=== PATIENT | male | born 1935 | race Caucasian/White ===

== ENCOUNTER 2021-08-25 14:35 | Inpatient (IN) | payer MEDICARE, OTHER ==
[~2021-08-25] VITALS: Ht 182.9 cm; Wt 64.4 kg
[2021-08-25 15:08] LABS: HEMATOCRIT 41.5 % (36.7-47.1); MEAN CORPUSCULAR HEMOGLOBIN 31.9 uug (23.8-33.4); MEAN CORPUSCULAR VOLUME 94.9 fL (73.0-96.2); PLATELET COUNT (AUTO) 199 K/uL (152-348)
[2021-08-25 15:21] LABS: CARBON DIOXIDE 29 mmol/L (21-32); CHLORIDE 106 mmol/L (98-107); CREATININE 1.2 mg/dL (0.6-1.3); GLUCOSE 133 mg/dL (74-106); UREA NITROGEN, BLOOD 24 mg/dL (7-18)
[2021-08-25 15:24] LABS: ETHANOL < 3 MG/DL (0-0)
[2021-08-25 15:31] LABS: THYROID STIMULATING HORMONE 0.874 mIU/mL (0.358-3.740)
[2021-08-25 15:33] LABS: ALANINE AMINOTRANSFERASE 30 U/L (16-63); ALKALINE PHOSPHATASE 64 U/L (50-136); ASPARTATE AMINOTRANSFERASE 18 U/L (15-37); BILIRUBIN,DIRECT 0.1 mg/dL (0.0-0.2); BILIRUBIN,TOTAL 0.3 mg/dL (0.2-1.0); TOTAL PROTEIN, SERUM 6.4 g/dL (6.4-8.2)
[2021-08-25 15:34] LABS: ACETAMINOPHEN < 2.0 ug/mL (10-30)
[2021-08-25 15:49] LABS: *BILIRUBIN,URIN NEGATIVE (NEGATIVE); *BLOOD, URINE NEGATIVE (NEGATIVE); *CLARITY,URINE CLEAR (CLEAR); *COLOR,URINE YELLOW (YELLOW); *KETONES,URINE NEGATIVE (NEGATIVE); LEUKOCYTE ESTERASE ,URINE NEGATIVE (NEGATIVE); NITRITE, URINE NEGATIVE (NEGATIVE); PH,URINE 6.5 (5.0-8.0); UGLUCOSE NEGATIVE (NEGATIVE)
[2021-08-25 15:59] LABS: *AMPHETAMINE, URINE NEGATIVE (NEGATIVE); *CANNABINOID, URINE NEGATIVE (NEGATIVE); *COCCAINE, URINE NEGATIVE (NEGATIVE); *OPIATE, URINE NEGATIVE (NEGATIVE); *PHENCYCLIDINE SCREEN,URINE NEGATIVE (NEGATIVE)
--- NOTE | 2021-08-25 16:50 | NUR ---
Pt placed on 5150 (GD) hold by Art.
--- NOTE | 2021-08-25 17:10 | NUR ---
AT BEDSIDE, PT RESTLESS, GETTING WORSE, TRIES TO COME OUT OF BED, MD NOTIFIED.
[2021-08-25] MEDS ORDERED: ZIPRASIDONE MESYLATE 20 MG VIAL IM ONE ×2 (17:15→17:20)
[2021-08-25] MEDS ORDERED: LORAZEPAM 2 MG/1 ML VIAL IM ONE (17:15)
[2021-08-25] MEDS ORDERED: diphenhydrAMINE 50 MG/1 ML VIAL IM ONE (17:15)
[2021-08-25] MEDS ORDERED: diphenhydrAMINE 50 MG/1 ML VIAL ONE (17:19)
[2021-08-25] MEDS ORDERED: LORAZEPAM 2 MG/1 ML VIAL ONE (17:20)
--- NOTE | 2021-08-25 17:30 | NUR ---
Per pt is medically clear and may be admitted to MHU. SBAR report given to HENRIQUE Wade via telephone.
[2021-08-25] MEDS ORDERED: HALO5TAB PO (17:44)
[2021-08-25] MEDS ORDERED: LORA-259 PO (17:44)
[2021-08-25] MEDS ORDERED: OLAN5TAB3 PO (17:44)
[2021-08-25] MEDS ORDERED: POLY17PO4 PO (17:44)
[2021-08-25] MEDS ORDERED: LORA-258 PO (17:44)
[2021-08-25] MEDS ORDERED: MAGN400O6 PO (17:44)
[2021-08-25] MEDS ORDERED: MIRT-93 PO (17:44)
--- NOTE | 2021-08-25 17:52 | NUR ---
Pt trans to MHU, NAD noted.
[2021-08-25] MEDS ORDERED: ACETAMINOPHEN 325 MG TABLET PO PRN (18:00)
[2021-08-25] MEDS ORDERED: MAGNESIUM HYDROXIDE 30 ML LIQUID UDC PO PRN (18:00)
[2021-08-25] MEDS ORDERED: MAG HYDROX/AL HYDROX/SIMETH 30 ML LIQUID UDC PO PRN (18:00)
[2021-08-25] MEDS ORDERED: LORAZEPAM 1 MG TABLET PO PRN (18:00)
[2021-08-25] MEDS ORDERED: TEMAZEPAM 7.5 MG CAPSULE PO PRN (18:00)
[2021-08-25 18:21] VITALS: BP 143/85
--- NOTE | 2021-08-25 18:39 | NUR ---
ADMITTED A 86 YRS OLD PATIENT FROM ER, PATIENT IS AAO X1 UNABLE TO ANSWER ANY QUESTION DUE TO MENTAL STATUS. 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 STATES 3 WEEKS AGO PT BECOME ACUTELY PSYCHOTIC ANY [facility] WAS UNABLE TO CARE OF HIM. PATIENT NOTED BOTH KNEE WITH SCAB PICTURE TAKEN . DR. FLORES NOTIFIED ADMISSION
[2021-08-25 21:00] VITALS: BP 127/78
[2021-08-25 21:02] VITALS: BP 130/87
--- NOTE | 2021-08-25 22:14 | NUR ---
RECEIVED PATIENT IN THE HALLWAY SITTING IN A ADELAIDA CHAIR. HE IS NOTED SLEEPING BUT EASILY AROUSABLE. PATIENT NOTED CONFUSED WITH DISORGANIZED SPEECH. PATIENT IS A POOR HISTORIAN AND IS UNABLE TO HAVE A MEANINGFUL CONVERSATION WITH THIS LINKING MACHINE OPERATOR. V/S STABLE AT THIS TIME. SHE WAS GIVEN PO FLUIDS AND SNACKS. SAFETY AND FALL PRECAUTIONS ARE IN PLACE. WILL CONTINUE TO MONITOR.
[2021-08-26 08:08] LABS: ALANINE AMINOTRANSFERASE 23 U/L (16-63); ALKALINE PHOSPHATASE 69 U/L (50-136); ASPARTATE AMINOTRANSFERASE 24 U/L (15-37); BILIRUBIN,TOTAL 1.3 mg/dL (0.2-1.0); CARBON DIOXIDE 28 mmol/L (21-32); CHLORIDE 108 mmol/L (98-107); CREATININE 1.8 mg/dL (0.6-1.3); GLUCOSE 116 mg/dL (74-106); POTASSIUM 4.1 mmol/L (3.5-5.1); TOTAL PROTEIN, SERUM 6.3 g/dL (6.4-8.2); UREA NITROGEN, BLOOD 26 mg/dL (7-18)
[2021-08-26 08:14] VITALS: BP 117/76
[2021-08-26] MEDS: risperiDONE 0.5 MG TABLET PO SCH ×2 (09:19→16:58)
[2021-08-26] MEDS: DIVALPROEX SPRINKLE 125 MG CAP.SPRINK PO SCH ×3 (09:20→20:40)
[2021-08-26 16:00] VITALS: BP 96/53
--- NOTE | 2021-08-26 18:00 | NUR ---
Pt. is alert, oriented X 1 to self. Pt. affect is confused, disoriented, restless at times. Compliant with medications and care. Ambulates with assistance. Reassurance given. Fall and safety precautions implemented.
[2021-08-26 20:09] VITALS: BP 128/62
[2021-08-26] MEDS: ATORVASTATIN 20 MG TABLET PO SCH (20:35)
[2021-08-26] MEDS: MIRTAZAPINE 15 MG TABLET PO SCH (20:35)
--- NOTE | 2021-08-27 04:21 | NUR ---
Received patient up in a ranjan chair at the nurses station. Awake but confused. Poor eye contact and patient is unable to follow simple directions. Patient became somewhat combative when assisting him to the bathroom, and was unable to figure out what to do when he was in there. He removed his pants and diaper 2x in the bed and was fixated on playing with his private parts. This script writer provided fluids and food plus a PRN for anxiety. The medication had minimal effectiveness. Frequent rounding has been done and the patient seems restless. It is noted that the patient slept a long time during the day shift. Continuing to monitor for safety and any possible agitation or aggressiveness. Bed alarm on at this time.
--- NOTE | 2021-08-27 06:20 | NUR ---
Patient slept 4:00 hours on and off. Up early this am. Shower given with max assist . Patient tolerated it well. This patient was able to follow directions better this am. Continuing to provide a safe environment.
[2021-08-27 07:30] VITALS: BP 137/75
[2021-08-27 08:16] LABS: HEMATOCRIT 46.3 % (36.7-47.1); MEAN CORPUSCULAR HEMOGLOBIN 32.4 uug (23.8-33.4); MEAN CORPUSCULAR VOLUME 95.5 fL (73.0-96.2); PLATELET COUNT (AUTO) 169 K/uL (152-348)
[2021-08-27 08:22] LABS: CARBON DIOXIDE 25 mmol/L (21-32); CHLORIDE 106 mmol/L (98-107); CREATININE 2.8 mg/dL (0.6-1.3); GLUCOSE 141 mg/dL (74-106); MAGNESIUM 2.3 mg/dL (1.8-2.4); PHOSPHOROUS 3.8 mg/dL (2.5-4.9); POTASSIUM 4.3 mmol/L (3.5-5.1); UREA NITROGEN, BLOOD 45 mg/dL (7-18)
[2021-08-27] MEDS: DIVALPROEX SPRINKLE 125 MG CAP.SPRINK PO SCH ×2 (09:00→20:57)
[2021-08-27] MEDS: MIRALAX 17 GM POWD.PACK PO SCH (09:00)
[2021-08-27] MEDS: risperiDONE 0.5 MG TABLET PO SCH ×2 (09:00→17:00)
--- NOTE | 2021-08-27 11:44 | NUR ---
Firearms Report: Site Technician completed and submitted a [employer] firearms report for 5150 grave disability certifications. A copy of report has been placed in patient chart.
--- NOTE | 2021-08-27 14:04 | NUR ---
D[facility]ES Initial Discharge Plan: Patient is currently residing at [address], [place] [address] ([phone]). Patient's , Michelle Deras ([phone]) is involved in the patient's treatment and discharge plan. DOLORES will continue to work with patient, family, and MD to ensure a safe and proper discharge plan.
--- NOTE | 2021-08-27 14:04 | NUR ---
DOLORES Family Contact: SW spoke with patient's , Michelle Deras ([phone]) and discussed treatment and discharge plan. Michelle stated that the patient can no longer return back to [address], [place] [address] ([phone]) as they gave her a letter of eviction and informed that cannot handle the patient's behaviors at their facility. SW discussed that we can find a new facility for the patient that is focused on psych patients and behaviors. Michelle is agreeable with this plan and is also searching for facilities near her area.
--- NOTE | 2021-08-27 14:06 | NUR ---
D[facility]ES SNF Referral: DOLORES faxed patient's referral packet to [facility] ( ) attention to Teresa. Addendum: 08/28/21 at 1210 by TREMAINE GARDNER Patient did not get accepted as he is an elopement risk and facility is not locked.
[2021-08-27 16:00] VITALS: BP 122/79
[2021-08-27 20:00] VITALS: BP 123/72
[2021-08-27] MEDS: ATORVASTATIN 20 MG TABLET PO SCH (20:57)
[2021-08-27] MEDS: MIRTAZAPINE 15 MG TABLET PO SCH (20:57)
[2021-08-28 07:30] VITALS: BP 136/87
[2021-08-28 07:35] LABS: CARBON DIOXIDE 23 mmol/L (21-32); CHLORIDE 109 mmol/L (98-107); CREATININE 2.1 mg/dL (0.6-1.3); GLUCOSE 145 mg/dL (74-106); POTASSIUM 4.2 mmol/L (3.5-5.1); UREA NITROGEN, BLOOD 54 mg/dL (7-18)
[2021-08-28] MEDS: DIVALPROEX SPRINKLE 125 MG CAP.SPRINK PO SCH ×2 (08:26→21:22)
[2021-08-28] MEDS: risperiDONE 0.5 MG TABLET PO SCH ×2 (08:27→16:26)
[2021-08-28] MEDS: MIRALAX 17 GM POWD.PACK PO SCH (08:27)
--- NOTE | 2021-08-28 10:03 | NUR ---
SW Family Contact: SW spoke with patient's , Michelle Deras ([phone]) and discussed updated treatment and discharge plan, as well as medication changes.
--- NOTE | 2021-08-28 10:30 | NUR ---
DOLORES Family Contact: DOLORES spoke with patient's , Michelle Deras ([phone]) and discussed updated discharge plan. SW informed patient did not get accepted to [facility] and will try alternate SNF options.
--- NOTE | 2021-08-28 11:56 | NUR ---
GPS: SPOKE WITH , STATED SHE WILL VISIT WITH HER SON ON THE WEEKEND. TOLD ABOUT THE COVID VACCINE POLICY AND VISITATION HOURS. WOULD LIKE TO REQUEST TO VISIT PT BEFORE 3PM BECAUSE THEY CAME ALL THE WAY FROM [facility].
--- NOTE | 2021-08-28 12:08 | NUR ---
DOLORES SNF Referral: DOLORES faxed referral packet to [facility] [address], [place] [address] ) ) attention to Maliha admin coordinator. Addendum: 08/28/21 at 1446 by TREMAINE GARDNER Maliha stated they cannot accept patient due to elopement risk
[2021-08-28] MEDS: ENSURE ENLIVE (VAN) 240 ML LIQUID PO SCH ×2 (12:23→16:26)
[2021-08-28 16:00] VITALS: BP 100/62
--- NOTE | 2021-08-28 16:05 | NUR ---
GPS: SENT COURT NOTIFICATION FOR PT 2802 14 DAY HOLD STARTING TODAY. PT GIVEN COPY.
--- NOTE | 2021-08-28 16:46 | NUR ---
patient remain calm and cooperative with meds and care. no agitation noted.continue plan of care.
[2021-08-28 20:50] VITALS: BP 116/56
[2021-08-28] MEDS: MIRTAZAPINE 15 MG TABLET PO SCH (21:22)
[2021-08-28] MEDS: ATORVASTATIN 20 MG TABLET PO SCH (21:22)
[2021-08-29 07:30] VITALS: BP 142/70
[2021-08-29 07:44] LABS: HEMATOCRIT 44.9 % (36.7-47.1); MEAN CORPUSCULAR HEMOGLOBIN 31.8 uug (23.8-33.4); MEAN CORPUSCULAR VOLUME 95.3 fL (73.0-96.2); PLATELET COUNT (AUTO) 175 K/uL (152-348)
[2021-08-29 08:00] LABS: ALANINE AMINOTRANSFERASE 18 U/L (16-63); ALKALINE PHOSPHATASE 67 U/L (50-136); ASPARTATE AMINOTRANSFERASE 15 U/L (15-37); BILIRUBIN,TOTAL 0.9 mg/dL (0.2-1.0); CARBON DIOXIDE 29 mmol/L (21-32); CHLORIDE 109 mmol/L (98-107); GLUCOSE 135 mg/dL (74-106); MAGNESIUM 2.5 mg/dL (1.8-2.4); TOTAL PROTEIN, SERUM 7.2 g/dL (6.4-8.2); UREA NITROGEN, BLOOD 64 mg/dL (7-18)
[2021-08-29] MEDS: risperiDONE 0.5 MG TABLET PO SCH ×2 (11:18→17:39)
[2021-08-29] MEDS: MIRALAX 17 GM POWD.PACK PO SCH (11:19)
[2021-08-29] MEDS: DIVALPROEX SPRINKLE 125 MG CAP.SPRINK PO SCH ×2 (11:19→20:19)
[2021-08-29] MEDS: ENSURE ENLIVE (VAN) 240 ML LIQUID PO SCH ×3 (11:20→17:39)
[2021-08-29 17:12] VITALS: BP 107/62
--- NOTE | 2021-08-29 18:49 | NUR ---
Patient remained calm and cooperative throughout the shift, complaint with medications, no episodes of anger or agitation noted. No episodes of hallucinations noted. Patient assisted with all ADLS.
[2021-08-29 20:00] VITALS: BP 117/66
[2021-08-29] MEDS: ATORVASTATIN 20 MG TABLET PO SCH (20:18)
[2021-08-29] MEDS: MIRTAZAPINE 15 MG TABLET PO SCH (20:19)
[2021-08-30 08:20] VITALS: BP 141/75
[2021-08-30] MEDS: risperiDONE 0.5 MG TABLET PO SCH ×2 (08:33→17:16)
[2021-08-30] MEDS: MIRALAX 17 GM POWD.PACK PO SCH (08:33)
[2021-08-30] MEDS: DIVALPROEX SPRINKLE 125 MG CAP.SPRINK PO SCH ×2 (08:33→20:44)
[2021-08-30] MEDS: ENSURE ENLIVE (VAN) 240 ML LIQUID PO SCH ×3 (08:34→17:16)
--- NOTE | 2021-08-30 12:42 | NUR ---
Gps/Show Horse Driver- Theresa called, wants update about her , and will be visiting patient this afternoon . Remains up in his ranjan-chair, set up with his lunch , quiet , fidgety
--- NOTE | 2021-08-30 14:54 | NUR ---
Gps/Horse Stud Manager- Needed 2 staff to assist patient with his hygiene, patient tends to grabs, incontinent of pasty stools , kept skin dry and clean
[2021-08-30 16:10] VITALS: BP 142/67
--- NOTE | 2021-08-30 16:10 | NUR ---
Gps/Electrical Fitter- and son in to visit , wanting to know patient' s progress. asking why patient appeared to be sleepy this pm., was informed patient was uncooperative during his pm care, needing 2 staff to provide his care
--- NOTE | 2021-08-30 17:04 | NUR ---
Gps/Glass Cylinder Flanger- Theresa , wants to talk to Psychiatrist (Dr Escobedo) , verbalized concerns re- patient appeared to be sleepy , not interactive today. Informed patient was grabbing and uncooperative during his pm care. Patient was able to sleep 4.30 from last night, son Benito was also informed. Per Theresa, ok to give information to his son Benito( ). also noted occ. shaking to right hand of the patient, no tremors noted at this time, will continue to monitor. Family bought 3 long sleeves shirts and 1 kakhi pants.
[2021-08-30] MEDS ORDERED: IV 1/2NS 1000 ML 1,000 ML IV ONE (19:00)
[2021-08-30 20:00] VITALS: BP 113/67
[2021-08-30] MEDS: ATORVASTATIN 20 MG TABLET PO SCH (20:44)
[2021-08-30] MEDS: MIRTAZAPINE 15 MG TABLET PO SCH (20:44)
--- NOTE | 2021-08-31 04:42 | NUR ---
GPS: remain cooperative with meds but grabbing staff while providing adl's. confused and unable to fallow command. no agitation noted at this time. patient noted isolative through the shift. continue plan of care.
--- NOTE | 2021-08-31 06:41 | NUR ---
slept 8.30 hrs through the night.
--- NOTE | 2021-08-31 07:45 | NUR ---
Gps/Accessibility Lift Technician- Patient asleep , in no sign od any distress , during the initial rounds. B/P 115/43 HR 94 T-98.3 otal temp .,02 sat 96%.
--- NOTE | 2021-08-31 08:22 | NUR ---
WHILE PERFORMING CARE TO PT LAYING SUPINE IN BED, HEALTH PROGRAM MANAGER NOTIFIED STAFF NURSE AND CHARGE NURSE OF BLEEDING. UPON EVALUATION, PT'S DIAPER IS COVERED IN EXCESSIVE AMOUNTS OF THICK DARK RED BLOOD. UNABLE TO DETERMINE AT THIS TIME THE ORIGIN OF THE BLOOD DUE TO EXCESSIVE AMOUNTS. PT IS ALERT TO STIMULI BUT CONFUSED. LATEST V/S AT 8AM WHERE FOLLOWS: 115/33, 98.3, 94HR, 19RR, 96%RA. CALLED AND SPOKE TO DR. BUSTOS WITH ORDER TO TRANSFER TO ER IMMEDIATELY FOR FURTHER ASSESSMENT AND EVALUATION. PT TAKEN TO ER ON BED ACCOMPANIED BY STAFF NURSE AND HEALTH PROGRAM MANAGER.
--- NOTE | 2021-08-31 08:25 | NUR ---
Gps/Gunner'S Mate- Patient was transfered to ER via bed for evaluation as ordered by Dr Garza Report was given to Eli DUENAS..
--- NOTE | 2021-08-31 10:20 | NUR ---
Gps/Heena- Michelle () called , was informed patient was taken to ER this for further evaluation and higher level of care as ordered by Dr Sandy .
--- NOTE | 2021-09-01 09:44 | NUR ---
Discharge/Transfer Note: Patient was discharged from MHU on 08/31/2021 and transferred to CCU due to lower gastrointestinal Bleeding. Patient remains on 5250 hold. Pt is from [facility] [id number], [place] [address] ([phone]) however per patient's , Michelle Deras ([phone]) patient will not be returning back. Per , patients primary physician Karina Kerns [address], [place] [address] ([phone]) is working with them for placement in their area or possibly back to [facility]. Pt is alert and oriented x2. Pt denies suicidal or homicidal ideation. Pt presented with appropriate mood and congruent affect.
[2021-09-04] MEDS ORDERED: MIRT-93 PO (10:49)
[2021-09-04] MEDS ORDERED: RISP0.5T5 PO (10:49)
[2021-09-04] MEDS ORDERED: DIVA125C2 PO (10:49)
[2021-09-04] MEDS ORDERED: PANT40TA49 PO (10:49)
== END 2021-08-31 09:30 | disposition short-term general hospital (02) | DRG 885 ==
LOC: ER 14:35 → GPS 17:38
PROVIDERS: ADMIT Psychiatry & Neurology Psychiatry; ATTEND Internal Medicine
DX: F29 Unspecified psychosis not due to a substance or known physiological condition (principal); N17.0 Acute kidney failure with tubular necrosis; F02.81 Dementia in other diseases classified elsewhere, unspecified severity, with behavioral disturbance; Z68.1 Body mass index [BMI] 19.9 or less, adult; G30.9 Alzheimer's disease, unspecified; E78.5 Hyperlipidemia, unspecified; Z20.822 Contact with and (suspected) exposure to COVID-19; R62.7 Adult failure to thrive; N40.0 Benign prostatic hyperplasia without lower urinary tract symptoms
CPT/HCPCS: 36415; 71045; 80164; 83735; 84100; 84443; 85025; 93005; 97161; A4663; G0480; J1200; J2060; J3486; J3490

== ENCOUNTER 2021-08-31 08:27 | Inpatient (IN) | payer MEDICARE, OTHER ==
[~2021-08-31] VITALS: Ht 170.2 cm; Wt 718.1 kg
[2021-08-31] VITALS (8 sets, daily range): BP systolic 86–117; BP diastolic 42–86
[~2021-08-31 08:27] MED LIST: MAGN400O6 PO; POLY17PO4 PO
[2021-08-31] MEDS ORDERED: PANTOPRAZOLE SODIUM IV 80 MG in IV DEXTROSE 5% 100 ML IV ONE (08:45)
[2021-08-31] MEDS ORDERED: IV NORMAL SALINE 1000 ML BAG IV ONE (08:45)
[2021-08-31 09:44] LABS: MEAN CORPUSCULAR HEMOGLOBIN 31.5 uug (23.8-33.4); MEAN CORPUSCULAR VOLUME 96.6 fL (73.0-96.2); PLATELET COUNT (AUTO) 179 K/uL (152-348)
[2021-08-31] MEDS ORDERED: PANTOPRAZOLE SODIUM 40 MG VIAL ONE (09:52)
--- NOTE | 2021-08-31 09:53 | NUR ---
L/M FOR GI DR OLIVO REQUESTING CONSULT RE PT GI BLEED.
[2021-08-31 09:55] LABS: CARBON DIOXIDE 26 mmol/L (21-32); CHLORIDE 110 mmol/L (98-107); CREATININE 3.3 mg/dL (0.6-1.3); GLUCOSE 188 mg/dL (74-106); POTASSIUM 5.8 mmol/L (3.5-5.1)
[2021-08-31] MEDS ORDERED: IV NS 1000 ML 1,000 ML IV ONE (10:00)
[2021-08-31] MEDS ORDERED: levoFLOXacin 500 MG/D5W 100ML PIGGYBACK IV ONE (10:00)
[2021-08-31] MEDS ORDERED: METRONIDAZOLE 500 MG/NS 100 ML PIGGYBACK IV ONE (10:00)
[2021-08-31 10:03] LABS: UREA NITROGEN, BLOOD 119 mg/dL (7-18)
[2021-08-31 10:07] LABS: ALANINE AMINOTRANSFERASE 18 U/L (16-63); ALKALINE PHOSPHATASE 65 U/L (50-136); ASPARTATE AMINOTRANSFERASE 13 U/L (15-37); BILIRUBIN,DIRECT 0.2 mg/dL (0.0-0.2); BILIRUBIN,TOTAL 0.8 mg/dL (0.2-1.0); LIPASE 45 U/L (73-393); TOTAL PROTEIN, SERUM 6.4 g/dL (6.4-8.2)
[2021-08-31] MEDS ORDERED: CALCIUM CHLORIDE 1 GM/10 ML DISP.SYRIN IVP ONE ×2 (10:15→10:22)
[2021-08-31] MEDS ORDERED: INSULIN REGULAR, HUMAN 300 UNIT/3 ML VIAL IV ONE ×2 (10:15→15:45)
[2021-08-31] MEDS ORDERED: DEXTROSE 50% 50 ML DISP.SYRIN IV ONE ×2 (10:15→15:45)
[2021-08-31] MEDS ORDERED: SODIUM BICARBONATE 4.2 % (NEUT) 5 ML VIAL IJ ONE (10:15)
[2021-08-31] MEDS ORDERED: SODIUM BICARBONATE 4.2 % (NEUT) 5 ML VIAL ONE (10:21)
[2021-08-31] MEDS ORDERED: DEXTROSE 50% 50 ML DISP.SYRIN ONE (10:23)
[2021-08-31] MEDS ORDERED: INSULIN NPH 1,000 UNITS/10 ML VIAL SQ ONE (10:23)
--- NOTE | 2021-08-31 10:45 | NUR ---
cleaned pt who had mix of soft stool and michael blood, changed linen.
[2021-08-31] MEDS ORDERED: levoFLOXacin 500 MG/D5W 100 ML ONE (10:50)
[2021-08-31] MEDS ORDERED: METRONIDAZOLE 500 MG/NS 100ML 100 ML IV ONE (10:51)
--- NOTE | 2021-08-31 11:45 | NUR ---
INSERTED HAHN CATHETER USING ASEPTIC TECHNIQUE, SECURED TO RIGHT LEG. uRINE SAMPLE SENT TO LAB.
--- NOTE | 2021-08-31 12:00 | NUR ---
Pt's , Michelle, medical POA, .
[2021-08-31 12:09] LABS: *BILIRUBIN,URIN NEGATIVE (NEGATIVE); *BLOOD, URINE 3+ (NEGATIVE); *CLARITY,URINE CLOUDY (CLEAR); *COLOR,URINE YELLOW (YELLOW); *KETONES,URINE NEGATIVE (NEGATIVE); *UROBILINOGEN,URINE 0.2 E.U./dl (NORMAL); LEUKOCYTE ESTERASE ,URINE NEGATIVE (NEGATIVE); NITRITE, URINE NEGATIVE (NEGATIVE); PH,URINE 5.5 (5.0-8.0); UGLUCOSE NEGATIVE (NEGATIVE)
[2021-08-31 12:12] LABS: HEMATOCRIT 35.9 % (36.7-47.1); MEAN CORPUSCULAR HEMOGLOBIN 31.8 uug (23.8-33.4); MEAN CORPUSCULAR VOLUME 97.1 fL (73.0-96.2); PLATELET COUNT (AUTO) 147 K/uL (152-348)
[2021-08-31 12:21] LABS: *URINE TOTAL PROTEIN RANDOM 11.8 mg/dL (<150/24HR)
[2021-08-31 13:33] LABS: RBC,URINE 50-80 /HPF (0-3); WBC,URINE 0-3 /HPF (0-3)
[2021-08-31 13:34] LABS: BACTERIA,URINE FEW /HPF (NONE SEEN); SQUAMOUS EPITHELIAL CELL,UR FEW /HPF (NONE SEEN); URINE AMORPHOUS URATE MODERATE /HPF
--- NOTE | 2021-08-31 14:18 | NUR ---
Drained cerrato = 1500cc. last 300-400cc seemed primarily michael blood, aware.
[2021-08-31 14:31] LABS: MEAN CORPUSCULAR HEMOGLOBIN 32.1 uug (23.8-33.4); MEAN CORPUSCULAR VOLUME 96.4 fL (73.0-96.2); PLATELET COUNT (AUTO) 143 K/uL (152-348)
--- NOTE | 2021-08-31 14:33 | NUR ---
Admitting MD stated Admit to [facility].
[2021-08-31 14:34] LABS: CARBON DIOXIDE 25 mmol/L (21-32); CHLORIDE 114 mmol/L (98-107); GLUCOSE 175 mg/dL (74-106); POTASSIUM 5.5 mmol/L (3.5-5.1)
[2021-08-31 14:36] LABS: UREA NITROGEN, BLOOD 110 mg/dL (7-18)
[2021-08-31 14:46] LABS: ALANINE AMINOTRANSFERASE 18 U/L (16-63); ALKALINE PHOSPHATASE 61 U/L (50-136); ASPARTATE AMINOTRANSFERASE 13 U/L (15-37); BILIRUBIN,TOTAL 0.8 mg/dL (0.2-1.0); PHOSPHOROUS 4.7 mg/dL (2.5-4.9); TOTAL PROTEIN, SERUM 5.6 g/dL (6.4-8.2)
--- NOTE | 2021-08-31 15:26 | NUR ---
Patient in from E.R. via gurricha and transferred by Jazmyne Dominguez. Patient sleeping but withdraws from painful stimuli. IV access disrupted during transfer and at this time A G20 inserted to LFA. Patient on 2 Liter oxygen via nasal canula with saturation of 100%. Hemodynamically stable heart rate of 87, sbp of 117/55 no tachypnea RR of 13. Upon initial assessment pt. noted to have redness to sacrum and perianal area. multiple scabs BUE and BLE. pictures taken. Addendum: 08/31/21 at 1531 by CARSON TALLEY RN Boo with bloody output noted. Addendum: 08/31/21 at 1532 by CARSON TALLEY RN One to one sitter at bedside pt. on/off sleeping and attempting to get out of bed. Received pt from E.R. with mittens in place.
--- NOTE | 2021-08-31 15:29 | NUR ---
Attending notified of pt's arrival to the unit.
[2021-08-31] MEDS ORDERED: GOLYTELY 4000 ML BOTTLE PO ONE (16:30)
--- NOTE | 2021-08-31 16:51 | NUR ---
Attending physician Dr. Valdes in the unit to see and examine pt. report given see order hx.
--- NOTE | 2021-08-31 17:04 | NUR ---
Follow up BS post insulin and destrose is 192 mm/hg
--- NOTE | 2021-08-31 17:43 | NUR ---
Dr. Valdes notified that pt. remains sleeping on/off now and when touch pt. becomes, combative.
--- NOTE | 2021-08-31 18:27 | NUR ---
Patient with heart rate of 82 and sbp of 87/50 Dr. Valdes notified orders for levophed for standby received, and change pt. to ICU status received.
[2021-08-31] MEDS ORDERED: NOREPINEPHRINE BITARTRATE 8 MG in IV NORMAL SALINE 242 ML IV PRN (18:30)
--- NOTE | 2021-08-31 18:56 | NUR ---
Left pt. in bed sleeping intermittently on/off aggressive behavior when awake and touch. Hemodynamically sbp of 101/60 pt been on the borderline with orders to start him on levophed. Heart rate of 82. On 2L nasal canula with saturation above 95%. 1 bloody bm for the shift. LEFt G 20 patent. Patient remains on legal hold with documentation in chart.
[2021-08-31] MEDS ORDERED: MORPHINE SULFATE 2 MG/1 ML DISP.SYRIN IV PRN (19:00)
[2021-08-31] MEDS ORDERED: ONDANSETRON 4 MG/2 ML VIAL IV PRN (19:00)
[2021-08-31] MEDS ORDERED: ACETAMINOPHEN 650 MG SUPP.RECT RC PRN (19:00)
[2021-08-31] MEDS ORDERED: LORAZEPAM 2 MG/1 ML VIAL IV PRN (19:00)
--- NOTE | 2021-08-31 19:00 | NUR ---
1900 Received patient asleep, arousable to touch, lying in bed; no signs of distress noted. Checked IV site patent and flushed. No erythema or infiltration noted. Bed at lowest position, brakes on, siderails x3. Will continue to monitor closely.
--- NOTE | 2021-08-31 20:00 | NUR ---
NG tube FR14 inserted at R nare, patent and placement confirmed by CXR.
--- NOTE | 2021-08-31 20:30 | NUR ---
Ignacia RN spoke with Dr. Headley regarding patient's colonoscopy procedure. Per Dr. Headley, to give Golytely tomorrow AM and ordered to obtained consent.
--- NOTE | 2021-08-31 20:40 | NUR ---
Notified Gideon Maldonado NP regarding low urine output, hematuria, and no IV fluid maintenance. Per Joel CLIENT APPLICATION SUPPORT ENGINEER, he will put in the order.
[2021-08-31] MEDS: IV D5W 1000ML 1,000 ML IV PRN (20:55)
[2021-08-31] MEDS: PANTOPRAZOLE SODIUM 40 MG VIAL IV SCH (20:55)
--- NOTE | 2021-08-31 21:40 | NUR ---
Phone consent obtained from patient's Marjorie and witnessed by 2 RNs.
--- NOTE | 2021-08-31 22:00 | NUR ---
OB stool obtained and sent to lab
[2021-08-31] MEDS: METRONIDAZOLE 500 MG/NS 100ML 500 MG in PREMIXED 1 EACH IV SCH (22:06)
[2021-08-31 22:44] LABS: *OCCULT BLOOD STOOL POSITIVE (NEGATIVE)
[2021-09-01] VITALS (16 sets, daily range): BP systolic 96–146; BP diastolic 46–82
--- NOTE | 2021-09-01 01:00 | NUR ---
No urine output. Bladder scanner done with UO of more than 800ml.
--- NOTE | 2021-09-01 01:15 | NUR ---
Attempted to flushed water and insert cerrato catheter with resistance noted. Still with no urine output. Patient appears to be restless, grimacing noted.
--- NOTE | 2021-09-01 01:45 | NUR ---
Boo Coude Catheter F16 successfully inserted by Barney Messina from ER draining well to gravity initial UO appears to be bloody in color then changed to marvel urine output.
[2021-09-01] MEDS ORDERED: LIDOCAINE 2% (UROJET) 10 ML JELLY MM ONE (01:56)
[2021-09-01 05:10] LABS: HEMATOCRIT 33.1 % (36.7-47.1); MEAN CORPUSCULAR HEMOGLOBIN 32.3 uug (23.8-33.4); MEAN CORPUSCULAR VOLUME 96.5 fL (73.0-96.2); PLATELET COUNT (AUTO) 145 K/uL (152-348)
[2021-09-01 05:30] LABS: ALANINE AMINOTRANSFERASE 19 U/L (16-63); ALKALINE PHOSPHATASE 60 U/L (50-136); ASPARTATE AMINOTRANSFERASE 12 U/L (15-37); BILIRUBIN,TOTAL 0.6 mg/dL (0.2-1.0); CARBON DIOXIDE 29 mmol/L (21-32); CHLORIDE 117 mmol/L (98-107); CREATININE 2.3 mg/dL (0.6-1.3); GLUCOSE 147 mg/dL (74-106); MAGNESIUM 2.9 mg/dL (1.8-2.4); PHOSPHOROUS 4.6 mg/dL (2.5-4.9); POTASSIUM 5.1 mmol/L (3.5-5.1); TOTAL PROTEIN, SERUM 5.7 g/dL (6.4-8.2)
[2021-09-01] MEDS: METRONIDAZOLE 500 MG/NS 100ML 500 MG in PREMIXED 1 EACH IV SCH ×3 (05:34→21:05)
[2021-09-01 05:42] LABS: UREA NITROGEN, BLOOD 103 mg/dL (7-18)
--- NOTE | 2021-09-01 06:29 | NUR ---
Patient is in stable condition, VS stable. No acute distress noted.
--- NOTE | 2021-09-01 07:30 | NUR ---
received report on pt, alert to stimulation, pt has redness on sacrum, NSR on monitor, pt on 2L via O2 NC, pt on daphney mittens, pt NPO with NG tube in place in right nares, voiding via caude czech #14, dark red bloody urine. first step mattress ordered for pt.
--- NOTE | 2021-09-01 08:17 | NUR ---
CALLED REPORT TO ATTENDING PHYSICIAN AND GAVE REPORT, ORDERS TO DOWNGRADE TO TELEMETRY RECEIVED.
[2021-09-01] MEDS: PANTOPRAZOLE SODIUM 40 MG VIAL IV SCH ×2 (08:54→20:11)
[2021-09-01] MEDS: Z GUARD REMEDY PASTE 57 GM TUBE TOP SCH ×2 (08:56→20:12)
--- NOTE | 2021-09-01 09:45 | NUR ---
Discharge/Transfer Note: Patient was discharged from MHU on 08/31/2021 and transferred to CCU due to lower gastrointestinal Bleeding. Patient remains on 5250 hold. Pt is from [facility] [address], [place] [address] ([phone]) however per patient's , Michelle Deras ([phone]) patient will not be returning back. Per , patients primary physician Karina Kerns [address], [place] [address] ([phone]) is working with them for placement in their area or possibly back to [facility]. Pt is alert and oriented x2. Pt denies suicidal or homicidal ideation. Pt presented with appropriate mood and congruent affect.
[2021-09-01] MEDS: IV D5W 1000ML 1,000 ML IV PRN (12:42)
--- NOTE | 2021-09-01 15:00 | NUR ---
pt is having large amounts of bloody, liquid stools.
--- NOTE | 2021-09-01 19:30 | NUR ---
Report received. Patient non verbal, easily gets agitated when stimulated. With bilateral mittens for safety, patient gets restless and attempts to pull on NGT and cerrato. Reoriented PRN. Assessment done. Finn completed as per report. Patient incontinent of liquid green stools. Cleaned; skin care provided. Turned and repositioned. Addendum: 09/01/21 at 5735 by DANNIELLE CROWLEY RN Amended: Links added.
--- NOTE | 2021-09-01 19:56 | NUR ---
Patient's Michelle called; updated of patient's condition.
--- NOTE | 2021-09-01 22:00 | NUR ---
Had another moderate liquid green stools. Bath given. 1st Step air mattress applied to bed. Patient gets mildly agitated during care. Still non verbal. Addendum: 09/02/21 at 0120 by DANNIELLE CROWLEY RN Amended: Links added.
[2021-09-02] VITALS (11 sets, daily range): BP systolic 100–137; BP diastolic 60–75
[2021-09-02 05:07] LABS: HEMATOCRIT 28.4 % (36.7-47.1); MEAN CORPUSCULAR VOLUME 95.6 fL (73.0-96.2); PLATELET COUNT (AUTO) 148 K/uL (152-348)
[2021-09-02 05:21] LABS: BILIRUBIN,TOTAL 0.5 mg/dL (0.2-1.0); CREATININE 1.3 mg/dL (0.6-1.3); MAGNESIUM 2.6 mg/dL (1.8-2.4); POTASSIUM 3.7 mmol/L (3.5-5.1); TOTAL PROTEIN, SERUM 5.2 g/dL (6.4-8.2)
[2021-09-02] MEDS: METRONIDAZOLE 500 MG/NS 100ML 500 MG in PREMIXED 1 EACH IV SCH ×3 (05:21→22:53)
[2021-09-02] MEDS: IV D5W 1000ML 1,000 ML IV PRN (05:24)
--- NOTE | 2021-09-02 06:41 | NUR ---
Had a small green liquid stools. Cleaned; skin care provided. Turned and repositioned. Still gets mildly agitated with care. Randomly utters few words every now and then, but doesn't respond to questions or follow any commands. VS stable. school lunch monitor: SR rate 70's-80's. Serum [id number] reported to Marlena Ferrell NP; no order. Patient is on continuous D5W at 70 ml/H.
--- NOTE | 2021-09-02 07:15 | NUR ---
Received report from night assistant nurse, patient in bed arousable to touch. 2L nasal cannula saturation 100%, cerrato catheter intact. Hemodynamically stable, Sinus rhythm on the monitor. NG tube in place. Cerrato catheter intact.
[2021-09-02] MEDS: Z GUARD REMEDY PASTE 57 GM TUBE TOP SCH ×2 (08:01→21:03)
[2021-09-02] MEDS: PANTOPRAZOLE SODIUM 40 MG VIAL IV SCH ×2 (08:01→20:44)
--- NOTE | 2021-09-02 10:19 | NUR ---
DOLORES PC Hearing: Patient had 5250 probable cause hearing today and it was upheld for grave disability.
--- NOTE | 2021-09-02 12:10 | NUR ---
Report given to Isaac on Telemetry floor. Patient maintains sinus rhythm on the monitor, 100% o2 saturation on 2L nasal cannula. Air mattress inflated, cerrato intact, no BM this shift. Sitter left to room 325 with patient and HENRIQUE Douglas.
--- NOTE | 2021-09-02 12:15 | NUR ---
Picked up patient from CCU and transferred to MS/TELE floor. Patient will respond to his name if prompted. No sign of distress noted. Patient is on 2L of oxygen NC. Pt has a NGT. Report given by Haley from CCU is that patient is prepped for colonoscopy. Patient is on bilateral mittens and has a 1:[address] Safety precautions are in place. Will continue to monitor.
--- NOTE | 2021-09-02 12:39 | NUR ---
Called Michelle Deras to notify her of transfer to 3rd floor however, she did not answer the phone. Limited message left to return call.
--- NOTE | 2021-09-02 16:30 | NUR ---
Patient picked up by surgery and is off the floor for surgery. Will continue monitoring when back on floor.
--- NOTE | 2021-09-02 19:34 | NUR ---
Patient returned from procedure and is in room with 1:1 sitter. 800 + cc of urine output and diverticulosis was found. Safety precautions are in place. Will endorse to oncoming nurse.
[2021-09-02] MEDS: Z GUARD REMEDY PASTE 57 GM TUBE TOP PRN ×2 (21:01→21:02)
[2021-09-03] MEDS: IV D5W 1000ML 1,000 ML IV PRN ×2 (02:05→17:22)
[2021-09-03] MEDS: Z GUARD REMEDY PASTE 57 GM TUBE TOP PRN (04:12)
[2021-09-03 04:23] VITALS: BP 124/70
--- NOTE | 2021-09-03 05:52 | NUR ---
Pt slept throughout the night. 1:1 sitter at bedside. No distress noted. Pt has mittens on, Q2H restraint release done. IV site intact. SR on tele. No other issues or concerns at this time, will endorse to day shift.
[2021-09-03] MEDS: METRONIDAZOLE 500 MG/NS 100ML 500 MG in PREMIXED 1 EACH IV SCH (05:56)
[2021-09-03 06:49] LABS: HEMATOCRIT 28.4 % (36.7-47.1); MEAN CORPUSCULAR HEMOGLOBIN 32.2 uug (23.8-33.4); MEAN CORPUSCULAR VOLUME 95.7 fL (73.0-96.2); PLATELET COUNT (AUTO) 166 K/uL (152-348)
[2021-09-03 07:20] LABS: CREATININE 1.1 mg/dL (0.6-1.3); POTASSIUM 3.9 mmol/L (3.5-5.1)
[2021-09-03] MEDS: PANTOPRAZOLE SODIUM 40 MG VIAL IV SCH ×2 (08:15→20:25)
--- NOTE | 2021-09-03 09:02 | NUR ---
NG TUBE REMOVED PER MD ORDERS
[2021-09-03] MEDS: DIVALPROEX SPRINKLE 125 MG CAP.SPRINK PO SCH ×2 (09:13→20:26)
[2021-09-03] MEDS: Z GUARD REMEDY PASTE 57 GM TUBE TOP SCH ×2 (09:13→20:37)
[2021-09-03] MEDS: risperiDONE 0.5 MG TABLET PO SCH ×2 (09:13→16:35)
[2021-09-03 12:00] VITALS: BP 116/53
[2021-09-03 16:14] VITALS: BP 118/62
[2021-09-03 20:00] VITALS: BP 118/60
[2021-09-03] MEDS ORDERED: MIRTAZAPINE 15 MG TABLET PO SCH (21:00)
[2021-09-04 04:00] VITALS: BP 105/53
--- NOTE | 2021-09-04 05:57 | NUR ---
Pt slept throughout the night. Sitter at bedside for safety. IV site intact. Boo draining clear yellow, marvel urine. Repositioned for comfort. No other issues or concerns at this time, will endorse to day shift.
[2021-09-04 06:35] LABS: HEMATOCRIT 28.3 % (36.7-47.1); MEAN CORPUSCULAR HEMOGLOBIN 32.4 uug (23.8-33.4); MEAN CORPUSCULAR VOLUME 96.1 fL (73.0-96.2); PLATELET COUNT (AUTO) 190 K/uL (152-348)
[2021-09-04] MEDS: IV D5W 1000ML 1,000 ML IV PRN (06:48)
[2021-09-04 06:53] LABS: CREATININE 1.1 mg/dL (0.6-1.3); POTASSIUM 3.8 mmol/L (3.5-5.1)
[2021-09-04 08:00] VITALS: BP 130/63
[2021-09-04] MEDS: risperiDONE 0.5 MG TABLET PO SCH ×2 (08:00→16:16)
[2021-09-04] MEDS: DIVALPROEX SPRINKLE 125 MG CAP.SPRINK PO SCH (08:00)
[2021-09-04] MEDS: Z GUARD REMEDY PASTE 57 GM TUBE TOP SCH (08:01)
[2021-09-04] MEDS: PANTOPRAZOLE SODIUM 40 MG VIAL IV SCH (08:03)
[2021-09-04] MEDS ORDERED: RISP0.5T5 PO (10:49)
[2021-09-04] MEDS ORDERED: DIVA125C2 PO (10:49)
[2021-09-04] MEDS ORDERED: PANT40TA49 PO (10:49)
[2021-09-04] MEDS ORDERED: MIRT-93 PO (10:49)
[2021-09-04 11:47] VITALS: BP 113/51
[2021-09-04] MEDS ORDERED: PANTOPRAZOLE SODIUM 40 MG TABLET.DR PO SCH (17:00)
--- NOTE | 2021-09-04 18:23 | NUR ---
dc orders received noted and carried out,dc midline per Md orders.dc instruction and rn report given to the intermediate ,pt left the facility via ambulances in stable condition
[2021-09-04] MEDS ORDERED: LIDOCAINE-MPF 2% 5 ML VIAL IJ ONE (18:30)
[2021-09-04] MEDS ORDERED: PROPOFOL 200 MG/20 ML BOTTLE IV ONE (18:30)
== END 2021-09-04 18:31 | DRG 871 ==
LOC: ER 08:27 → CCU 14:44 → TELE3 09-02 11:56 → MEDSURG3 09-03 12:02
PROVIDERS: ADMIT Internal Medicine; ATTEND Internal Medicine
PROC: 0DBK8ZX Excision of Ascending Colon, Via Natural or Artificial Opening Endoscopic, Diagnostic (ICD-10-PCS; principal; 2021-09-02)
PROC: 05H533Z Insertion of Infusion Device into Right Subclavian Vein, Percutaneous Approach (ICD-10-PCS; 2021-09-02)
PROC: B546ZZA Ultrasonography of Right Subclavian Vein, Guidance (ICD-10-PCS; 2021-09-02)
DX: A41.9 Sepsis, unspecified organism (principal); G92.8 Other toxic encephalopathy; K57.91 Diverticulosis of intestine, part unspecified, without perforation or abscess with bleeding; F02.81 Dementia in other diseases classified elsewhere, unspecified severity, with behavioral disturbance; D68.59 Other primary thrombophilia; E87.0 Hyperosmolality and hypernatremia; N17.9 Acute kidney failure, unspecified; N13.8 Other obstructive and reflux uropathy; N13.30 Unspecified hydronephrosis; G30.9 Alzheimer's disease, unspecified; D69.6 Thrombocytopenia, unspecified; E78.5 Hyperlipidemia, unspecified; E86.0 Dehydration; E86.1 Hypovolemia; E87.5 Hyperkalemia; R73.9 Hyperglycemia, unspecified; N40.1 Benign prostatic hyperplasia with lower urinary tract symptoms; Z74.09 Other reduced mobility; K21.9 Gastro-esophageal reflux disease without esophagitis; F29 Unspecified psychosis not due to a substance or known physiological condition; R31.9 Hematuria, unspecified; D50.0 Iron deficiency anemia secondary to blood loss (chronic); K63.5 Polyp of colon; K64.8 Other hemorrhoids; N32.0 Bladder-neck obstruction
CPT/HCPCS: 36415; 51702; 70030-TC; 71045; 82378; 83605; 83690; 83735; 84100; 84156; 84300; 85025; 85730; 86625; 86850; 86900; 86901; 86920; 87040; 87046; 87086; 93005; 97161; A4217; A4663; A6209; C9113; G0378; J1815; J1956; J3490; J7030; J7050; J7060; J7070